=== PATIENT | male | born 1985 | race Two or more races ===

== ENCOUNTER 2023-06-09 09:39 | Emergency (ER) | payer MEDICAID ==
[~2023-06-09] VITALS: Ht 175.3 cm; Wt 88.3 kg
[2023-06-09] MEDS ORDERED: cloNIDine HCL 0.1 MG TAB PO ONE (10:15)
[2023-06-09 10:56] VITALS: RESP 18; TEMP 97.9
[2023-06-09 12:23] VITALS: BP 140/103; PULSE 61; O2SAT 98
[2023-06-09] MEDS ORDERED: LISI10TA34 PO (12:35)
== END 2023-06-09 12:40 | disposition home or self-care (01) ==
LOC: ER 09:39
DX: S40.021A Contusion of right upper arm, initial encounter (principal); I10 Essential (primary) hypertension; Z91.148 Patient's other noncompliance with medication regimen for other reason; X50.0XXA Overexertion from strenuous movement or load, initial encounter; Y93.89 Activity, other specified; Y92.89 Other specified places as the place of occurrence of the external cause; Y99.8 Other external cause status
CPT/HCPCS: 93971

== ENCOUNTER 2024-08-02 19:53 | Emergency (ER) | payer MEDICAID ==
[~2024-08-02] VITALS: Ht 172.7 cm; Wt 92.3 kg
[~2024-08-02 19:53] MED LIST: LISI10TA34 PO
[2024-08-02 20:02] VITALS: TEMP 98
[2024-08-02] MEDS: cloNIDine HCL 0.1 MG TAB PO ONE (20:15)
[2024-08-02] MEDS ORDERED: ACET500T58 PO (21:55)
[2024-08-02] MEDS: ONDANSETRON ODT 4 MG TAB PO ONE (22:17)
[2024-08-02] MEDS: MORPHINE SULFATE INJ 2 MG/ml SYRG IM ONE (22:30)
[2024-08-02 23:02] VITALS: BP 138/101; PULSE 85; RESP 18; O2SAT 96
== END 2024-08-02 23:09 | disposition home or self-care (01) ==
LOC: ER 19:53
DX: S90.32XA Contusion of left foot, initial encounter (principal); I10 Essential (primary) hypertension; Z79.899 Other long term (current) drug therapy; W22.8XXA Striking against or struck by other objects, initial encounter; Y93.01 Activity, walking, marching and hiking; Y92.89 Other specified places as the place of occurrence of the external cause; Y99.8 Other external cause status
CPT/HCPCS: 73630; 96372; 99283; J2270; Q0162